=== PATIENT | male | born 1985 | race Caucasian/White ===

== ENCOUNTER 2018-09-10 16:00 | Emergency (ER) | payer OTHER ==
[~2018-09-10] VITALS: Ht 175.3 cm; Wt 61.2 kg
[2018-09-10 16:18] LABS: URINE BILIRUBIN NEGATIVE (Negative); URINE BLOOD TRACE (Negative); URINE CLARITY CLEAR; URINE COLOR YELLOW; URINE GLUCOSE-RANDOM* NEGATIVE (Negative); URINE KETONES 2+ (Negative); URINE LEUKOCYTES-REFLEX NEGATIVE (Negative); URINE NITRITE-REFLEX NEGATIVE (Negative); URINE PROTEIN (DIPSTICK) 1+ (Negative); URINE UROBILINOGEN 0.2 E.U./dl (0.2-1.0)
[2018-09-10 16:30] LABS: CASTS None Seen /LPF (None Seen); CRYSTALS None Seen /LPF (None Seen); SQUAMOUS 0-3 Few /LPF (0-3); URINE RBC 0-2 Rare /HPF (0-2)
[2018-09-10 16:31] LABS: BACTERIA-REFLEX 1-9 Few /HPF (None Seen); URINE WBC-REFLEX 0-5 Rare /HPF (0-5)
[2018-09-10 16:44] LABS: ABSOLUTE NEUTROPHILS 10.5 thou/uL (1.4-8.2); BASOPHILS 0.4 % (0.0-2.0); HEMATOCRIT 40.7 % (42.0-52.0); LYMPHOCYTES 3.5 % (24.0-44.0); MCH 32.8 pg (26.0-34.0); MCHC 34.3 g/dL (28.0-37.0); MCV 95.5 fL (80.0-100.0); PLATELET COUNT 142 thou/uL (150-400); POLYS 88.1 % (36.0-66.0); RBC 4.26 mil/uL (4.50-6.00); RDW 12.2 % (10.5-14.5)
[2018-09-10 16:55] LABS: CALCIUM 9.3 mg/dL (8.5-10.1); CREATININE 1.1 mg/dL (0.7-1.3); POTASSIUM 3.7 mmol/L (3.5-5.1)
[2018-09-10 17:00] LABS: ALBUMIN 4.3 g/dL (3.4-5.0); TOTAL BILIRUBIN 0.8 mg/dL (<0.1-1.0); TOTAL PROTEIN 8.7 g/dL (6.4-8.2)
[2018-09-10 17:31] VITALS: BP 101/66
[2018-09-10] MEDS ORDERED: PHENERGAN 25 MG25 M1 PO (17:41)
[2018-09-10] MEDS ORDERED: AMOXICILLIN 50500 MG PO (17:41)
== END 2018-09-10 18:01 | disposition home or self-care (01) ==
LOC: ER 16:00
PROVIDERS: Physician Assistant
DX: J02.0 Streptococcal pharyngitis (principal); R11.2 Nausea with vomiting, unspecified; M79.10 Myalgia, unspecified site; R10.13 Epigastric pain; F17.200 Nicotine dependence, unspecified, uncomplicated; Z88.8 Allergy status to other drugs, medicaments and biological substances; Z88.6 Allergy status to analgesic agent